=== PATIENT | male | born 1965 | race Caucasian/White ===

== ENCOUNTER 2017-01-07 06:17 | Emergency (ER) | payer SELFPAY ==
[~2017-01-07] VITALS: Ht 167.6 cm; Wt 87.0 kg
[2017-01-07 06:23] VITALS: Ht 167.6 cm; Wt 87.0 kg
[2017-01-07] MEDS ORDERED: KETOROLAC 30 MG INJ IM STA (06:56)
--- NOTE | 2017-01-07 07:00 | ERD ---
ER Documentation Chief Complaint Date/Time DATE: 01/07/17 TIME: 06:39 Chief Complaint Pt reports injuryingL side on Sunday HPI 51-year-old male presents to the emergency department for reproducing left rib pain that started last Sunday. Stated that this started while he was lifting a heavy object, while he was bending over. Pain was described as sharp, nonradiating, reproducing with pain rate of 3/10 at this time but 8/10 if he is moving or on range of motion. Denies headache, loss of consciousness, dizziness, blurry vision, changes in vision, photophobia, facial pain, ear pain, throat pain, difficulty swallowing, neck pain, shoulder pain, cough, hemoptysis, abdominal pain, back pain, loss of appetite, nausea, vomiting, hematochezia, diarrhea, constipation, urinary symptoms, bladder and bowel incontinences, extremity weakness, extremity tenderness, numbness or tingling sensation, difficulty walking, recent travel, recent exposure to illness, recent antibiotic use in the last 3 months, fever, chills. Allergy: No known drug allergies. PMH: Denies past medical history. Medications: Not taking any prescription medication. Surgery: Denies. Family history: Denies family history of cardiac before the age of 50. Primary Social History: Not working at this time. Smokes about 2-3 sticks of cigarettes every 2-3 days. Occasional drinks alcoholic beverages. Denies use of illegal drugs. ROS All systems reviewed and are negative except as per history of present illness. Medications Home Meds Active Scripts Acetaminophen* (Tylophen*) 500 Mg Capsule, 1 CAP PO Q6H Y for PAIN AND OR ELEVATED TEMP, #20 CAP Prov:MARTA DYE F 01/07/17 Ibuprofen* (Motrin*) 800 Mg Tab, 800 MG PO Q8 Y for PAIN AND OR ELEVATED TEMP, # 30 TAB Prov:PASILABANRAQUELAR F 01/07/17 Reported Medications [None] No Conflict Check 12/18/10 PMhx/Soc History of Surgery: No Anesthesia Reaction: No Hx Neurological Disorder: No Hx Respiratory Disorders: No Hx Cardiac Disorders: No Hx Psychiatric Problems: Yes (ANXIETY) Hx Miscellaneous Medical Probl: No Hx Alcohol Use: Yes Hx Substance Use: No Hx Tobacco Use: Yes Smoking Status: Current some day smoker Physical Exam Vitals Vital Signs Date Time Temp Pulse Resp B/P Pulse Ox O2 Delivery O2 Flow Rate FiO2 01/07/17 06:23 98.1 64 20 139/84 97 Physical Exam CONSTITUTIONAL: Well-appearing; well-nourished; in no apparent distress. HEAD: Normocephalic; atraumatic. EYES: Conjunctiva clear, sclera non-icteric, EOM intact. PERRL Ears: Hearing intact. EACs clear, TMs non-bulging, non-inflamed, translucent & mobile, ossicles normal appearance, No obstructions, no erythema, no discharges Nose: No obstructions. No polyps. No external lesions. Mucosa non-inflamed. No external lesions, septum and turbinates normal. No rhinorrhea. No discharges. Frontal sinus is non-tender to palpation. Maxillary sinus is non-tender to palpation. MOUTH: Moist mucous membranes, no lesion, no obstructions, no vesicles, no thrush, patent airway Throat: Uvula in midline. Right tonsil is +1 with no erythema, no exudate. Left tonsil is +1 with no erythema, no exudate. Tolerating secretions well. Good gag reflex. Patent airway. Neck: Supple, without lesions, bruits, or adenopathy. No mass. Thyroid non- enlarged and non-tender to palpation. CHEST: Symmetrical chest. Respirations even and not labored. No retractions noted. Left rib pain and tenderness. No crepitus. Skin is intact. No bruising. CARDIOVASCULAR: Normal S1, S2. RRR. No murmurs, gallops. RESPIRATORY: Normal chest excursion with respiration; breath sounds clear and equal bilaterally; no wheezes, rhonchi, or rales. Breathing even and unlabored. Speaking in clear, full, and complete sentences w/ ease. ABDOMEN: Normal bowel sounds normal. Soft, round, non-distended, non-guarding, no tenderness, no rebound, no organomegaly, no masses, no pulsating abdominal mass. No hernia. No peritoneal signs. : No CVA tenderness. BACK: Symmetrical shoulder. Spine is midline without deformity, tenderness. No evidence of trauma or deformity. PELVIS: Stable pelvis. No evidence of trauma or deformity. MUSCULOSKELETAL: Normal gait and station. No misalignment, asymmetry, crepitation, defects, tenderness, masses, effusions, decreased range of motion, instability, atrophy or abnormal strength or tone in the head, neck, spine, ribs , pelvis or extremities. Negative on straight leg test bilaterally. Good range of motion of neck and spine without pain. C-spine/T-spine/L-spine has good range of motion without pain and discomfort. C-spine/T-spine/L-spine has good alignment with no swelling/tenderness. No calf tenderness. NEUROVASCULAR: Distal pulses are present. Pedal pulse are present, equal, and normal. Capillary refills are < 2 seconds. NEUROLOGIC: Alert and oriented x4. Speaks full and clear sentences. Cranial Nerves II-XII normal. Sensation to pain, touch, and proprioception normal. Grossly unremarkable. No neurologic deficits. Romberg test is negative. PSYCHOLOGICAL: The patients mood and manner are appropriate. No hallucinations , delusions. Not SI. Not HI. Has the capacity to decide for self SKIN: Normal for age and ethnicity; warm; dry; good turgor; no apparent lesions or exudates. No rashes, hives, discoloration. Intact. Results 24 hrs Current Medications Medications (Trade) Dose Ordered Sig/Kavitha Route PRN Reason Start Time Stop Time Status Last Admin Dose Admin Ketorolac Tromethamine (Toradol) 30 mg ONCE STAT IM 01/07/17 06:56 01/07/17 06:59 DC 01/07/17 07:09 Procedures/MDM Examination: Please see physical examination. Disease process, medical treatment was explained to the patient and family member. They verbalized understanding and agreed with the diagnostic tests, medical treatment, and follow-up care. Radiology: Left rib x-ray. Impression: No evidence of acute cardiopulmonary disease. No evidence of left rib fractures. Treatment: Toradol IM. Re-evaluation: Denies headache, dizziness, blurry vision, neck pain, shoulder pain, chest pain, back pain, abdominal pain, rib pain. No nausea and vomiting. There is no right upper/right lower/epigastric/left upper/left lower abdominal tenderness and light and deep palpation. No peritoneal signs. No CVA tenderness. Good and full range of motion of neck and spine. Consultation: None. Differential diagnosis: Pneumonia versus pneumothorax versus pulmonary embolism versus fracture versus contusion versus dislocation. Medical decision m[age]-year-old male presents to the emergency department for reproducing left rib pain that started last Sunday. Stated that this started while he was lifting a heavy object, while he was bending over. Pain was described as sharp, nonradiating, reproducing with pain rate of 3/10 at this time but 8/10 if he is moving or on range of motion. Patient's complaint, patient's history about his complaint, my physical findings, diagnostic test results, my reevaluation are consistent with my final diagnosis of left rib pain. Medications prescribed are the following: Motrin. Tylenol. Patient and family member are made aware of the side effects and adverse reactions of the medications prescribed. Instructed on when to seek emergent and medical attention in case allergic/anaphylactic reactions or severe side effects and or adverse reactions to medications. Patient and family member verbalized understanding. Patient instructed Instructed to follow-up with his PCP in 24-48 hours. Instructed to Call 911 for chest pain, shortness of breath. Advised to come back here in ED as soon as possible for severity of symptoms which includes but not limited to: any new symptoms; shortness of breath/difficulty of breathing; cardiovascular changes; severe gastrointestinal symptoms; signs and symptoms of bleeding and or infection; signs of compartment syndrome/neurovascular changes; neurological changes/deficits. Patient and family member verbalized understanding. Upon discharge, patient is alert and oriented x 4, speaks full and clear sentences, denies pain, has no neurological deficits, has no neurovascular deficits, difficulty of breathing. Breathing even and unlabored. Lung sounds are clear to auscultation. Not in distress. Appears comfortable. Ambulatory with steady gait. Appears satisfied with care provided here in ED. Departure Diagnosis: Primary Impression: Rib pain Additional Impression: Rib contusion Condition: Good Additional Instructions: Instructed to follow-up with his PCP in 24-48 hours. Instructed to Call 911 for chest pain, shortness of breath. Advised to come back here in ED as soon as possible for severity of symptoms which includes but not limited to: any new symptoms; shortness of breath/difficulty of breathing; cardiovascular changes; severe gastrointestinal symptoms; signs and symptoms of bleeding and or infection; signs of compartment syndrome/neurovascular changes; neurological changes/deficits. Patient and family member verbalized understanding. MARTA DYE January 07, 2017 07:00
--- NOTE | 2017-01-07 08:35 | RADRPT ---
PROCEDURE: Left rib series CLINICAL INDICATION: Trauma and pain TECHNIQUE: PA upright chest and AP left rib series were obtained COMPARISON: No FINDINGS: The patient has a poor inspiration. The heart is within normal limits in size. There is no evidenc e of pulmonary vascular congestion acute lung consolidation pleural effusions and pneumothorax. No evidence of left rib fractures. The soft tissues are unremarkable. IMPRESSION: 1. No evidence of acute cardiopulmonary disease. 2. No evidence of left rib fractures. RPTAT:AAJJ Physician [facility] Date Time Electronically viewed and signed by Karie Palacio Physician on 01/07/2017 08:34 /
[2017-01-07] MEDS ORDERED: ACET500C5 PO (08:46)
[2017-01-07] MEDS ORDERED: IBUP800T25 PO (08:46)
== END 2017-01-07 08:59 | disposition home or self-care (01) ==
LOC: FTE 06:17
DX: S20.212A Contusion of left front wall of thorax, initial encounter (principal); F17.210 Nicotine dependence, cigarettes, uncomplicated; X50.0XXA Overexertion from strenuous movement or load, initial encounter; Y92.9 Unspecified place or not applicable
CPT/HCPCS: 71100; J1885; 96372